=== PATIENT | male | born 1990 | race Caucasian/White ===

== ENCOUNTER 2020-10-21 15:36 | Emergency (ER) | payer OTHER ==
[~2020-10-21] VITALS: Ht 162.6 cm; Wt 49.9 kg
[~2020-10-21 15:36] MED LIST: CYCL10 PO; HYDACE5 PO; IBUP600 PO; MEDICAL MARJUANA; OXYACE5T PO
== END 2020-10-21 17:07 | disposition home or self-care (01) ==
LOC: ER 15:36
DX: S01.01XA Laceration without foreign body of scalp, initial encounter (principal); W22.8XXA Striking against or struck by other objects, initial encounter; F12.220 Cannabis dependence with intoxication, uncomplicated; F69 Unspecified disorder of adult personality and behavior
CPT/HCPCS: 12001; 70450; 99283-25

== ENCOUNTER 2022-07-26 10:10 | Emergency (ER) | payer MEDICARE, OTHER ==
[~2022-07-26] VITALS: Ht 162.6 cm; Wt 56.7 kg
[2022-07-26 11:45] VITALS: BP 139/88
== END 2022-07-26 12:15 | disposition home or self-care (01) ==
LOC: ER 10:10
DX: R51.9 Headache, unspecified (principal); M54.2 Cervicalgia; M25.572 Pain in left ankle and joints of left foot; W17.2XXA Fall into hole, initial encounter
CPT/HCPCS: 70450; 72125; 73610; 99284-25; A9270; L0160